=== PATIENT | male | born 1970 | race Caucasian/White ===

== ENCOUNTER 2017-06-13 04:10 | Emergency (ER) | payer OTHER ==
[~2017-06-13] VITALS: Ht 182.9 cm; Wt 87.8 kg
[~2017-06-13 04:10] MED LIST: BUSPAR10 MG PO; CENTRUM ULTRA1 EACH PO; CYCLOBENZAPRINE10 MG PO; DAILY VITAMIN1 EAC8 PO; FISH OIL 1,2001 EAC4 PO; HYDROCODON-ACE1 EAC7 PO; PANTOPRAZOLE SO40 MG; PREVACID30 MG PO; ZOFRAN ODT4 MG PO
[2017-06-13 04:57] LABS: EOSINOPHIL (%) 1.8 % (0-5); EOSINOPHIL COUNT 0.1 K/uL (0-0.3); HEMATOCRIT 41.1 % (38.0-50.0); IMMATURE GRANULOCYTE (%) 0.3 % (0.0-0.7); INSTRUMENT ABS NEUTROPHIL CT 4.2 K/uL; LYMPHOCYTE COUNT 2.2 K/uL (1.0-2.8); MCH 29.5 PG (29.0-34.0); MCHC 34.5 G/DL (30.0-36.0); MCV 85.3 FL (86-99); MEAN PLAT.VOLUME 9.2 uM^3 (9.0-12.4); MONOCYTE (%) 8.1 % (3-12); MONOCYTE COUNT 0.6 K/uL (0-0.8); NEUTROPHIL (%) 58.2 % (45-76); NEUTROPHIL COUNT 4.2 K/uL (1.8-6.4); PLATELET COUNT 222 K/uL (156-360); RBC DIS.WIDTH-CV 12.4 % (11.8-14.6); RBC DIS.WIDTH-SD 38.5 % (39-53); RED BLOOD COUNT 4.82 M/uL (4.00-5.50); WHITE BLOOD COUNT 7.2 K/uL (4.1-10.2)
[2017-06-13 05:12] LABS: CHLORIDE 110 mEq/L (99-109); POTASSIUM 3.7 mEq/L (3.7-5.4); SODIUM 139 mEq/L (136-147)
[2017-06-13 05:14] LABS: GLUCOSE 101 mg/dL (70-99)
[2017-06-13 05:15] LABS: ANION GAP 9 MEQ/L (2-14)
[2017-06-13 05:17] LABS: GFR ESTIMATE (CALCULATED) > 59 mL/min/
[2017-06-13 05:18] LABS: UREA NITROGEN (BUN) 17 mg/dL (9-23)
[2017-06-13 05:22] LABS: TROP-I INTERPRETATION NEGATIVE; TROPONIN-I < 0.01 ng/mL (0.0-0.30)
[2017-06-13 06:00] VITALS: BP 132/87
== END 2017-06-13 06:01 | disposition home or self-care (01) ==
LOC: EME 04:10
PROVIDERS: Emergency Medicine
DX: F41.0 Panic disorder [episodic paroxysmal anxiety] (principal); K21.9 Gastro-esophageal reflux disease without esophagitis; J45.909 Unspecified asthma, uncomplicated; M54.9 Dorsalgia, unspecified; G89.29 Other chronic pain; Z87.891 Personal history of nicotine dependence
CPT/HCPCS: 71020; 80048; 84484; 85025; 93005; 99281; 99284